=== PATIENT | female | born 1995 | race Caucasian/White ===

== ENCOUNTER 2019-04-29 14:49 | Emergency (ER) | payer OTHER, MEDICAID, SELFPAY ==
[2019-04-29 15:10] VITALS: BP 132/58; PULSE 106; RESP 18; TEMP 37.1; O2SAT 99; BMI 24.0
--- NOTE | 2019-04-29 15:13 | ED.BACK ---
HPI - Back Pain/Injury General Chief Complaint: Back Pain/Injury Stated Complaint: knot in her lower back that is bothering her Time Seen by Provider: 04/29/19 14:54 Source: patient Mode of arrival: Ambulatory Limitations: no limitations History of Present Illness HPI Narrative: 23-year-old female 20 weeks EGA here for evaluation of left-sided back spasm. She states that occurred earlier today. She has been doing a lot of bending over. States the fairly sudden onset. Lasted 45 minutes. Was in her lower back. It has somewhat resolved at the time my evaluation. She also describes tingling in her hands and also tingling on the tip of her nose. Review of Systems Constitutional Constitutional: Denies fever(s) and Denies headache(s) ENT Ears, Nose, Mouth, and Throat: Denies headache(s) Cardiovascular Cardiovascular: Denies dyspnea Respiratory Respiratory: Denies cough and Denies dyspnea Gastrointestinal Gastrointestinal: Denies abdominal pain, Denies nausea and Denies vomiting Genitourinary Genitourinary: Denies dysuria and Denies vaginal discharge Musculoskeletal Musculoskeletal: Reports back pain, Reports muscle cramps and Reports tingling Integumentary/Breasts Skin/Breast: Denies lesions and Denies rash Neurologic Neurologic: Denies behavioral changes, Denies headache(s) and Reports tingling Psychiatric Psychiatric: Denies behavioral changes Hematologic/Lymphatic Hematologic/Lymphatic: Denies easy bleeding and Denies easy bruising Patient History Medical History Healthy adult (Acute) Social History lives independently: Yes Smoking Status: Never smoker Exam Const General: cooperative and healthy appearing Resp Effort & Inspection: normal respiratory effort Auscultation: clear to auscultation bilaterally Cardio Rate: regular rate Rhythm: regular rhythm Back/Spine/Pelvis Thoracic/Lumbar Spine: paraspinal tenderness (Left lumbar), No thoracic spinal tenderness and No lumbar spinal tenderness Skin Lesions: no lesions Rashes: no rashes Neuro General: alert and awake Cognition: normal cognition Speech: speech normal Extrem General: normal to inspection and capillary refill normal Psych Appearance: grossly normal and well kempt MDM - Back Pain/Injury MDM Narrative Medical decision making narrative: Low suspicion for related complications. Does have a fullness to the left side of her back paraspinal which I do suspect is the cause of her symptoms. I feel we could hold on radiologic studies for now. Discussed return precautions and follow-up instructions. She expressed understanding and agreement. Discharge Plan Departure Patient Disposition: Home Clinical Impression: Spasm of muscle of lower back Instructions: DI for Low Back Pain Activity Restrictions/Additional Instructions: Unfortunately we are limited secondary to your status on the medications we can administer you. You can take Tylenol. I do recommend heat/ice and massage. I also recommend light stretching. Return to the emergency department for any new symptoms to include rash, blood in your urine, other problems urinating, loss of fluid or any other new or concerning symptoms ED Sign-out Cosign ED Attending Cosignature Attestation: I was immediately available in the department for consultation. This documentation has been reviewed and I agree with assessment and plan. Supervised by Jose Guadalupe Maradiaga DO
--- NOTE | 2019-04-29 15:25 | PC.NURSE ---
Pt reports left sided back pain like a muscle cramp s/p post lying on left side.
== END 2019-04-29 15:34 | disposition home or self-care (01) ==
PROVIDERS: Emergency Provider Emergency Medicine
DX: M62.830 Muscle spasm of back (principal)
CPT/HCPCS: 99281

== ENCOUNTER → 2023-05-08 08:00 | Outpatient (CLI) | payer OTHER, MEDICAID, SELFPAY ==
--- NOTE | 2023-05-08 08:02 | DI.ECHO.S_ITS ---
[facility] +---------+ : : [address] : : : : [id number] : : : : Phone: [phone]+ Echocardiogram Report + + :Name: KHARI SIMMONS Study Date: 05/08/2023 Height: 62 in : :[facility] ReadingLocation: Weight: 120 lb : : Gender: Female BSA: 1.5 m2 : :: 1995 Age: 27 yrs BP: 103/72 mmHg: :Reason For Study: SYNCOPE AND COLLAPSE : :Ordering Physician: KEVIN, : :ANNIKA Performed By: Caitlyn Barclay : :Referring: ANNIKA BROWN : + + Interpretation Summary 1) Normal left ventricular thickness and size with low normal systolic function (EF 50-55%). 2) Normal right ventricular size and function. 3) No significant valvular abnormalities. 4) No prior Echo available for comparison. Procedure: A two-dimensional transthoracic echocardiogram with color flow and Doppler was performed. The study quality was technically adequate. There is no prior echocardiogram noted for this patient. The patient was in sinus rhythm with heart rates between 61-90 bpm during the exam. Left Ventricle: The left ventricle is normal in size and wall thickness. The ejection fraction is estimated to be 50-55%. There are no focal wall motion abnormalities. Right Ventricle: The right ventricle is normal in size and function. Atria: The left atrial size is normal. Right atrial size is normal. There is no Doppler evidence for an interatrial shunt. Mitral Valve: The mitral valve is normal in structure and function. There is trace mitral regurgitation. Aortic Valve: The aortic valve is trileaflet. The aortic valve opens well. There is no aortic valve stenosis. No aortic regurgitation is present. Tricuspid Valve: The tricuspid valve is normal in structure and function. There is mild tricuspid regurgitation. The right ventricular systolic pressure is estimated to be at least 16 mmHg based on an estimated right atrial pressure of 3 mm Hg. Pulmonic Valve: The pulmonic valve leaflets are thin and pliable; valve motion is normal. There is trace pulmonic regurgitation. Great Vessels: The aortic root is normal size. The dimensions of the ascending aorta are normal. The IVC is of normal diameter and collapses greater than 50% with a sniff. This suggests a low right atrial pressure of 3 mm Hg. Pericardium/ Pleura There is no pericardial effusion. There is no pleural effusion. MMode/2D Measurements & Calculations LVIDd: 4.8 cm LVOT diam: 2.0 cm LVIDs: 3.0 cm Ao root diam: 2.8 cm FS: 38.3 % asc Aorta Diam: 2.7 cm EPSS: 0.58 cm Ao Arch Diam (Prox Trans): 2.3 cm IVSd: 0.51 cm LVPWd: 0.71 cm LV cheema. diameter/BSA (cm/m^2): 3.1 LV sys. diameter/BSA (cm/m^2): 1.9 LA A2 area: 11.2 cm2 RA long axis: 3.9 cm LA A4 area: 10.5 cm2 RA area: 9.9 cm2 LA length (vol): 3.6 cm RA vol: 21.7 ml LA vol: 28.0 ml RA : 14.1 ml/m2 LA vol index: 18.2 ml/m2 IVC diam: 1.4 cm RVD1 (basal): 2.9 cm RVD2 (mid): 3.0 cm TAPSE: 1.8 cm Doppler Measurements & Calculations Ao V2 max: 95.1 cm/sec LVOT Max Luis: 87.2 cm/sec Ao V2 mean: 66.9 cm/sec LV V1 max P.0 mmHg Ao max P.6 mmHg LV V1 VTI: 16.6 cm Ao mean P.0 mmHg SANDRA(I,D): 2.8 cm2 Ao V2 VTI: 18.1 cm SANDRA(V,D): 2.8 cm2 sev ratio: 0.92 SANDRA indexed to BSA (cm^2/m^2): 1.8 MV E max luis: 65.2 cm/sec TR max luis: 182.5 cm/sec MV A max luis: 31.9 cm/sec TR max P.3 mmHg MV E/A: 2.0 PA V2 max: 91.7 cm/sec Med Peak E' Luis: 13.4 cm/sec PA V2 mean: 68.3 cm/sec E/E' med: 4.9 PA mean P.0 mmHg Lat Peak E' Luis: 19.0 cm/sec PA pr(Accel): 36.2 mmHg E/E' lat: 3.4 E/e' average: 4.2 MV dec time: 0.22 sec SV(LVOT): 50.5 ml Reading Physician:04:17 PM
== END ==
PROVIDERS: PCP Physician Assistant Medical; Referring Provider Physician Assistant Medical; Visit Provider Physician Assistant Medical
DX: I07.1 Rheumatic tricuspid insufficiency (principal); R55 Syncope and collapse
CPT/HCPCS: 93306

== ENCOUNTER → 2023-12-08 16:31 | Outpatient (CLI) | payer OTHER, MEDICAID, SELFPAY ==
[2023-12-09 14:24] LABS: Strep Grp B PCR NEG for Grp B Strep
== END ==
PROVIDERS: PCP Physician Assistant Medical; Visit Provider Student in an Organized Health Care Education/Training Program
DX: Z36.85 Encounter for antenatal screening for Streptococcus B (principal)
CPT/HCPCS: 87653

== ENCOUNTER → 2023-12-08 16:57 | Outpatient (CLI) | payer OTHER, MEDICAID, SELFPAY ==
[2023-12-08 17:51] LABS: Add Manual Diff / Slide Review NO; Basophils Absolute Auto 100 /uL (0-100); Basophils Percent Auto 0.6 % (0-2); Eosinophils Absolute Auto 100 /uL (0-450); Eosinophils Percent Auto 0.6 % (2-4); Hemoglobin 7.8 g/dL (12.0-16.0); Lymphocytes Absolute Auto 1600 /uL (1100-4500); Lymphocytes Percent Auto 14.7 % (25-40); Mean Corpuscular HGB Conc 31.5 % (30-36); Mean Corpuscular Hemoglobin 20.6 PG (26-34); Mean Corpuscular Volume 65.5 fL (80-100); Monocytes Absolute Auto 700 /uL (0-900); Monocytes Percent Auto 6.1 % (3-14); Neutrophils Absolute Auto 8600 /uL (1500-7000); Platelet Count 382 X10^3/uL (150-400); Red Blood Cell Count 3.81 X10^6/uL (4.0-5.2); Red Cell Distribution Width 18.1 % (11.6-14.8)
[2023-12-08 18:26] LABS: Anisocytosis 2+; Microcytosis 2+
[2023-12-08 18:27] LABS: Hypochromasia 1+
== END ==
PROVIDERS: PCP Physician Assistant Medical; Referring Provider Student in an Organized Health Care Education/Training Program; Visit Provider Student in an Organized Health Care Education/Training Program
DX: O99.019 Anemia complicating pregnancy, unspecified trimester (principal); Z36.85 Encounter for antenatal screening for Streptococcus B
CPT/HCPCS: 36415; 85025; 87653

== ENCOUNTER 2023-12-10 11:12 | Observation (INO) | payer OTHER, MEDICAID, SELFPAY ==
--- NOTE | 2023-12-10 21:10 | P.TNLD_ITS ---
Visit Information Visit Information Date of evaluation: 12/10/23 Primary OB Provider: Brenda Michael On-call OB Provider: Xochilt Amor Reason for Evaluation: Yes other Comments/Additional reasons for admission: monitoring s/p adverse reaction to schedule outpatient iron infusion 28yo at 36w6d presents to L&D triage for further monitoring following adverse reaction to outpatient iron infusion. On-call provider called by infusion center notifying that patient reported sudden onset SOB, chest pressure and R sided pain. Infusion was immediately stopped (per RN received <30cc in total) and first dose of IV bendaryl 25mg administered prior to MD notification. In infusion center patient was noted to be normotensive without tachycardia, SpO2 wnl, +FM without c/o contractions. Patient was subsequently transported to L&D for further monitoring and evaluation. On entering room patient is resting comfortably in NAD. Denies SOB, chest pain, contractions; endorses good FM, states she feels fine other than being tired from recent IV benadryl. No concerns since arrival per RN, reactive NST Vital Signs Vital Signs: maternal VSS reviewed in OBIX and wnl, no tachycardia, SpO2 wnl, normotensive COUNT INCLUDES THE [facility] Medical History (Updated 11/17/23 @ 15:42 by Brenda Michael DO) Healthy adult Surgical History (Updated 11/10/23 @ 09:44 by Nette Silveira RN) No pertinent past surgical history Family History (Updated 11/10/23 @ 09:47 by Nette Silveira, KATTY) Grandfather Heart attack Occluded coronary artery stent Father Arrhythmia Brother Asthma Mother Depression Anxiety Social History marital status: unmarried,single number of children: 1 household members: children lives independently: Yes caregiver/support person: Yes housing: apartment pets and animals: No education level: high school 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) current occupational exposures/hazards: Yes special eugenio needs: No travel history: over 6 months ago seatbelt use: always helmet use: Yes water heater temp set < 120 deg: Yes working smoke detector in home: Yes fire extinguisher in home: No carbon monox detector in home: Yes firearms in home: No do you feel safe at home: Yes Smoking Status: Never smoker second hand exposure: Yes (parents smoke) alcohol intake: former (rarely when not ) substance use type: does not use during the past year weight has: remained stable (prior to ) well-balanced diet: rarely or never daily servings fruits/ve-1 caffeine: No Type(s) of exercise: walking Review of Systems Review of Systems ROS: Yes All systems reviewed with the patient and are negative except as otherwise documented Exam Vital Signs (past 8 hours): maternal vital signs reviewed in OBIX and wnl Const General: cooperative and comfortable Nutritional Appearance: average body habitus Orientation: alert, awake and oriented x3 Limitations: mental status not altered Resp Effort & Inspection: normal respiratory effort and able to speak in complete sentences Auscultation: clear to auscultation bilaterally Cardio Pulses: normal peripheral pulses GI Other: gravid Other: deferred Skin General: no rashes or lesions noted Rashes: no rashes Neuro General: patient alert, patient awake and patient oriented x3 Extrem General: normal to inspection Psych Mental Status: mental status grossly normal Judgment: judgment good Evaluation Evaluation Baseline heart rate: 140 Variability: Moderate (11-25) monitor accelerations: Present Monitor Decelerations: Absent Category of Tracing: Reactive Status: Category l Diagnosis, Plan/Disposition Plan/Disposition Plan: 28yo at 36w6d presents for prolonged monitoring and observation following adverse reaction to scheduled outpatient iron infusion Adverse reaction to iron transfusion Immediate resolution of symptoms with cessation of IV transfusion and administration of low-dose IV benadryl Plan for additional 2h of monitoring to ensure no delayed s/sx, discharge to home thereafter with routine outpatient PNC as scheduled OB Disposition: home
== END 2023-12-10 14:35 | disposition home or self-care (01) ==
PROVIDERS: Admitting Provider Obstetrics & Gynecology; PCP Physician Assistant Medical; Referring Provider Obstetrics & Gynecology; Visit Provider Obstetrics & Gynecology
DX: O26.893 Other specified pregnancy related conditions, third trimester (principal); T45.4X5A Adverse effect of iron and its compounds, initial encounter; R06.02 Shortness of breath; R07.9 Chest pain, unspecified; Z3A.36 36 weeks gestation of pregnancy; O99.019 Anemia complicating pregnancy, unspecified trimester
CPT/HCPCS: 59025; 59050; 96365; 96374; G0378; G0379; J1200; Q0138

== ENCOUNTER → 2023-12-23 10:30 | Oncology outpatient (ONC) | payer OTHER, MEDICAID, SELFPAY ==
[2023-12-10 10:24] VITALS: BP 125/62; PULSE 73; RESP 16; TEMP 37.1; O2SAT 98
[2023-12-10] MEDS: ferumoxytoL 1,020 MG in SODIUM CHLORIDE 0.9% 250 ML 250 MG IV (10:40)
[2023-12-10 10:53] VITALS: BP 130/66; PULSE 113; RESP 18; TEMP 37.1; O2SAT 99
[2023-12-10] MEDS: diphenhydrAMINE 50 MG/ML VIAL 25 MG IV (10:55)
[2023-12-10 10:58] VITALS: BP 116/68; PULSE 92; RESP 18; O2SAT 99
[2023-12-10 11:04] VITALS: BP 113/65; PULSE 68; RESP 18; TEMP 37.1; O2SAT 94
--- NOTE | 2023-12-10 11:31 | PC.NURSE ---
1040 first dose Feraheme 1.02 gram (284 ml) started, no premedication. No hx of allergic reaction, NKDA, no hx asthma or inflammatory arthritis. 1050 Transfusion stopped and disconnected from patient. Pt reports SOB, right sided chest/side/back pain. Vitals obtained see flowsheet for vitals. Wasted 3cc of transfusion & 3 cc blood return from PIV pigtail; then flushed PIV with 10 cc NS flush. Patient only recieved 23 cc of Infusion. [address] Amor (Provider line [phone]) covering MD for [facility] for patients [facility] Dr Michael; notified MD of transfusion reaction, patient complaint/assessment/vitals - verbal order given to give 25 mg Benadryl IV now and patient will go to [facility] for monitoring/NST 1055 Benadryl 25 mg IV Push given L AC 22 ga PIV by Km Rene RN 1104 Patient still has pain to back and dizziness but denies SOB. Patient in wheelchair for transport to [facility]. Vitals in flowsheet 1110 Transferred care to center KATTY Herrera RN
[2023-12-18] VITALS (7 sets, daily range): BP systolic 107–122; BP diastolic 49–74; PULSE 78–95; RESP 16–18; TEMP 36.8–37.1; O2SAT 97–99
[2023-12-18] MEDS: FAMOTIDINE 20 MG/2 ML VIAL IV (10:38)
[2023-12-18] MEDS: IRON SUCROSE 300 MG in SODIUM CHLORIDE 0.9% 250 ML 130 MG IV (10:55)
--- NOTE | 2023-12-18 13:44 | PC.NURSE ---
Patient here for 1st dose of Venofer. Patient had a infusion reaction 12/10/23 within first 10-15 mins of Feraheme and Provider notified and patient monitored in Center NST, Patients symptoms of infusion reaction resolved within a few hours. Provider saw patient and completed new infusion orders for Venofer 300 mg IV x 2 doses 3-5 days apart with Pre-Med orders for Famotidine 20 mg IV. 1038 Famotidine/Pepcid (Pre-Med) given IV Push 1055 Venofer Infusion Started @ rate of 130 ml/hr see VS in flowsheet 1315 Venofer Infusion Completed, including NS flush of medication to clear IV tubing administration set; Patient reports nasal congestion, runny nose with clear mucus; Patient denies SOB, chest pain, rash or other signs of adverse insfusion reaction/hypersensitivity reaction. 1345 PIV removed, 30 mins post infusion monitoring completed, see flowsheet for VS; Patient tolerated infusion well with only nasal congestion, runny nose. 1355 Patient discharged to home
[2023-12-23 10:16] VITALS: BP 111/71; PULSE 82; RESP 18; TEMP 36.4; O2SAT 97
[2023-12-23] MEDS: FAMOTIDINE 20 MG/2 ML VIAL IV (10:45)
[2023-12-23] MEDS: IRON SUCROSE 300 MG in SODIUM CHLORIDE 0.9% 250 ML 176 MG IV (10:55)
[2023-12-23 12:37] VITALS: BP 111/61; PULSE 93; RESP 16; TEMP 37; O2SAT 98
[2023-12-23 13:03] VITALS: BP 110/63; PULSE 90; RESP 16; TEMP 36.8; O2SAT 98
--- NOTE | 2023-12-23 13:04 | PC.NURSE ---
Patient here for second dose of Venofer with Famotidine IV Push (Pre-Med) -- Venofer 300mg/265 ml infused @ 176 ml/hr: Patient tolerated infusion well. VSS. No signs/symptoms of transfusion reaction/allergic reaction. See flowsheet for details.
== END ==
PROVIDERS: PCP Physician Assistant Medical; Referring Provider Student in an Organized Health Care Education/Training Program; Visit Provider Student in an Organized Health Care Education/Training Program
DX: O99.019 Anemia complicating pregnancy, unspecified trimester (principal)
CPT/HCPCS: 96365; 96366; 96374; J1200; J1756; Q0138

== ENCOUNTER 2024-01-07 13:10 | Outpatient (CLI) | payer OTHER, MEDICAID, SELFPAY ==
--- NOTE | 2024-01-07 13:54 | PM.OBTRLD ---
[facility] Medical History (Updated 01/13/24 @ 17:23 by Brenda Michael DO) Healthy adult Surgical History (Updated 11/10/23 @ 09:44 by Nette Silveira, RN) No pertinent past surgical history Family History (Updated 11/10/23 @ 09:47 by Nette Silveira, KATTY) Grandfather Heart attack Occluded coronary artery stent Father Arrhythmia Brother Asthma Mother Depression Anxiety Social History marital status: unmarried,single number of children: 1 household members: children lives independently: Yes caregiver/support person: Yes housing: apartment pets and animals: No education level: high school 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) current occupational exposures/hazards: Yes special eugenio needs: No travel history: over 6 months ago seatbelt use: always helmet use: Yes water heater temp set < 120 deg: Yes working smoke detector in home: Yes fire extinguisher in home: No carbon monox detector in home: Yes firearms in home: No do you feel safe at home: Yes Smoking Status: Never smoker second hand exposure: Yes (parents smoke) alcohol intake: former (rarely when not ) substance use type: does not use during the past year weight has: remained stable (prior to ) well-balanced diet: rarely or never daily servings fruits/ve-1 caffeine: No Type(s) of exercise: walking Evaluation Evaluation Baseline heart rate: 130 Variability: Moderate (11-25) monitor accelerations: Present Monitor Decelerations: Absent Contraction Frequency (minutes): 0 Diagnosis, Plan/Disposition Plan/Disposition Plan: 28 yo at 40w6d, NST for post-dates FHT reassuring, reactive Discharge home mIOL scheduled for later this week OB Disposition: home
== END 2024-01-07 13:57 | disposition home or self-care (01) ==
LOC: LABOR 13:38 → OB 01-11 09:25
PROVIDERS: PCP Physician Assistant Medical; Referring Provider Family Medicine; Visit Provider Family Medicine
DX: O48.0 Post-term pregnancy (principal); Z3A.40 40 weeks gestation of pregnancy
CPT/HCPCS: 59025; G0378; G0379

== ENCOUNTER 2024-01-11 19:13 | Inpatient (IN) | payer OTHER, MEDICAID, SELFPAY ==
[2024-01-11 19:36] VITALS: BP 118/77
[2024-01-11] MEDS: DINOPROSTONE VAG (CERVIDIL) 10 MG VAG (20:32)
[2024-01-11 20:38] LABS: Basophils Absolute Auto 0 /uL (0-100); Basophils Percent Auto 0.5 % (0-2); Eosinophils Absolute Auto 100 /uL (0-450); Eosinophils Percent Auto 0.7 % (2-4); Hematocrit 31.1 % (36-46); Hemoglobin 9.8 g/dL (12.0-16.0); Lymphocytes Absolute Auto 1300 /uL (1100-4500); Lymphocytes Percent Auto 17.9 % (25-40); Mean Corpuscular HGB Conc 31.5 % (30-36); Mean Corpuscular Hemoglobin 22.3 PG (26-34); Mean Corpuscular Volume 70.9 fL (80-100); Monocytes Absolute Auto 600 /uL (0-900); Monocytes Percent Auto 7.6 % (3-14); Neutrophils Absolute Auto 5400 /uL (1500-7000); Neutrophils Percent Auto 73.3 % (50-75); Platelet Count 344 X10^3/uL (150-400); Red Blood Cell Count 4.39 X10^6/uL (4.0-5.2); White Blood Cell Count 7.3 X10^3/uL (4.5-11.0)
[2024-01-11 20:45] LABS: Add Manual Diff / Slide Review SLIDE REVIEW
[2024-01-11 20:46] LABS: Anisocytosis 3+
[2024-01-11 20:47] LABS: Microcytosis 1+
--- NOTE | 2024-01-12 07:53 | PM.OBHP.1 ---
OB HPI Date/Time Date of admission: 01/11/24 Date Patient Seen: 01/12/24 Time Patient Seen: 07:53 History of Present Condition Chief complaint: induction : 3 Para: 1 Estimated Date of Delivery: 01/01/24 Estimated Gestational Age (weeks): 41+4 Narrative: Kareen Ernst is a 28 year old female Comments: admitted for induction of labor due to late term . She reports irregular contractions overnight with cervidil, otherwise denies leaking fluid, vaginal bleeding, or decreased movement. 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 NGUYEN Jacek (no longer involved, but may be present for delivery) Assigned to Fernanda Preadmission Labs Blood type: O (+) positive -: Antibody screen: negative, Cystic fibrosis screen: unknown, GBS status: negative, HBsAG: negative, HIV: negative, HSV 1: unknown, HSV 2: unknown and RPR/VDLR: negative -: Chlamydia screen: not detected and Gonorrhea screen: not detected -: Rubella: immune and Varicella: not immune HCT: 31.1 HCAB: negative PAP: Normal 1 hr GTT: 123 Evaluation Evaluation Baseline heart rate: 130 Variability: Moderate (11-25) monitor accelerations: Present Monitor Decelerations: Absent Contraction Frequency (minutes): 8 Status: Category l PFSH Medical History (Updated 11/17/23 @ 15:42 by Brenda Michael DO) Healthy adult Surgical History (Updated 11/10/23 @ 09:44 by Nette Silveira RN) No pertinent past surgical history Family History (Updated 11/10/23 @ 09:47 by Nette Silveira RN) Grandfather Heart attack Occluded coronary artery stent Father Arrhythmia Brother Asthma Mother Depression Anxiety Social History marital status: unmarried,single number of children: 1 household members: children lives independently: Yes caregiver/support person: Yes housing: apartment pets and animals: No education level: high school 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) current occupational exposures/hazards: Yes special eugenio needs: No travel history: over 6 months ago seatbelt use: always helmet use: Yes water heater temp set < 120 deg: Yes working smoke detector in home: Yes fire extinguisher in home: No carbon monox detector in home: Yes firearms in home: No do you feel safe at home: Yes Smoking Status: Never smoker second hand exposure: Yes (parents smoke) alcohol intake: former (rarely when not ) substance use type: does not use during the past year weight has: remained stable (prior to ) well-balanced diet: rarely or never daily servings fruits/ve-1 caffeine: No Type(s) of exercise: walking Meds Home Medications and Allergies Home Medications Medication Instructions Recorded Confirmed Type [id number] 400 mcg-om3 35 mg-dha 25 tab PO 11/10/23 12/29/23 History mg-epa 5 mg-fish oil chewable tablet ferrous sulfate 325 mg (65 mg 325 mg PO DAILY 11/10/23 01/11/24 History iron) tablet (FeroSul) Allergies Allergy/AdvReac Type Severity Reaction Status Date / Time No Known Drug Allergies Allergy Unverified 01/02/24 15:49 Review of Systems Review of Systems ROS: Yes All systems reviewed with the patient and are negative except as otherwise documented OB Exam Vital signs Blood Pressure: 118/77 Pulse Rate: 111 Respiratory Rate: 18 Temperature: 98.6 F HENMT Head: normal to inspection Resp Effort & Inspection: normal respiratory effort and able to speak in complete sentences Cardio Rate: regular rate Rhythm: regular rhythm Extremities Lower extremity: Yes normal to inspection GI Other: gravid, nontender, nondistended Objective Labs 01/11/24 20:23 Labs: Laboratory Results - last 24 hr 01/11/24 20:23 WBC 7.3 RBC 4.39 Hgb 9.8 L Hct 31.1 L MCV 70.9 L MCH 22.3 L MCHC 31.5 RDW 28.0 H Plt Count 344 Neut % (Auto) 73.3 Lymph % (Auto) 17.9 L Cecil % (Auto) 7.6 Eos % (Auto) 0.7 L Baso % (Auto) 0.5 Neut # (Auto) 5400 Lymph # (Auto) 1300 Cecil # (Auto) 600 Eos # (Auto) 100 Baso # (Auto) 0 RBC Morphology See below Anisocytosis 3+ H Microcytosis 1+ H Blood Type O Positive Antibody Screen Negative Assessment and Plan Assessment and Plan Assessment and Plan narrative: 28yo at 41+4wks admitted for induction of labor due to late term . -CBC, T&S done on admission -continuous EFM -epidural PRN -GBS neg, ppx not indicated -PPH risk low -VTE risk low, SCDs with epidural -induction started overnight with cervidil, to be removed at 8:30am; will reassess cervical exam at that time and determine need for further ripening vs. pitocin L&D Counseling: Common procedures and interventions related to the management of were explained to the patient, including assistance at vaginal delivery with episiotomy, vacuum, or forceps, use of medications to stop premature labor or induce labor, and assessment including auscultation (listening to the heart), use of electronic monitoring (external and / or internal), and use of scalp electrode and/or intrauterine pressure catheter.? It was also explained that approximately 20-30% of mothers have a need for delivery during their labor course. It was explained to the patient that , labor and delivery are ordinarily normal physiological events and can be expected to provide a healthy outcome for mother and baby in the majority of cases. However, there are complications that may arise during , labor, and delivery, such as: hemorrhage requiring administration of blood and/or blood products, surgical intervention, possibly even hysterectomy for life-saving purposes; possibility of infection requiring antibiotics, prolonged hospital stay, and rarely surgical intervention; possibility of blood clots;? possibility of retained products of conception requiring surgical intervention;? possibility of serious tears or injury to the vagina, cervix, perineum, or rectum;? possibility of injury to abdominal structures if delivery is required;? and rarely maternal or may occur. Time-Based Coding :: [30min] spent with patient and on the chart (including review of chart, obtaining history, exam, reviewing outside data, placing orders, documenting exam and treatment plan, and counseling patient) on [01/12/24].
[2024-01-12 08:00] VITALS: BP 118/77; PULSE 111; RESP 18; TEMP 37
[2024-01-12] MEDS: LACTATED RINGERS 1,000 ML 100 ML IV ×2 (10:22→18:27)
[2024-01-12] MEDS: OXYTOCIN PREMIX 30 UNIT/500 ML PLAST..BAG IV (10:23)
--- NOTE | 2024-01-12 10:32 | PM.OBPNLAB ---
Pain Control Pain control: tolerating well Pelvic Exam Dilation (cm): 1 Effacement (%): 40 station: -3 Amniotic membrane status: Intact Contractions Contractions on admission: irregular Monitor mode: External Contraction frequency (min): 4 Contraction pattern: Regular Contraction intensity: Mild Status status: Category l Heart Rate Baseline: 130 Monitor Accelerations: Present Monitor Decelerations: Absent Monitor Variability: Moderate Assessment and Plan Assessment: induction ongoing Comments: 28yo at 41+4wks admitted last night for IOL. She is s/p cervidil placement, which was removed at 8:30am. Her cervical exam was as above, and given how frequent her contractions are, unable to do cytotec at this time. Given how posterior her cervix is, would not attempt hudson bulb at this time. -plan to start pitocin, which was started at 10:20am -repeat SVE 4hrs from pitocin start, and assess if hudson bulb needed
--- NOTE | 2024-01-12 15:00 | PM.OBPNLAB ---
Date/Time Date Patient Seen: 01/12/24 Time Patient Seen: 15:01 Pain Control Pain control: tolerating well Pelvic Exam Dilation (cm): 2 Effacement (%): 60 station: -3 Amniotic membrane status: Intact Contractions Monitor mode: External Pitocin rate (mU/min): 4 Contraction frequency (min): 3 Contraction pattern: Regular Status status: Category l Heart Rate Baseline: 130 Monitor Accelerations: Present Monitor Decelerations: Absent Monitor Variability: Moderate Assessment and Plan Assessment: induction ongoing Comments: Pt increasingly uncomfortable with contractions. Hudson bulb placed with 60cc of NS. -epidural PRN -once hudson bulb expulsed, re-evaluate for possible AROM
--- NOTE | 2024-01-12 18:05 | PM.OBPNLAB ---
Date/Time Date Patient Seen: 01/12/24 Time Patient Seen: 18:05 Pain Control Pain control: tolerating well Comments: Taking over care of the patient from Dr. Michael. Cervical ripening last night. Pitocin since 10:30 am. Palomo placed at 5pm. Contractions getting more intense. Pelvic Exam Dilation (cm): 6 Effacement (%): 80 station: -1 Amniotic membrane status: Bulging Comments: Palomo bulb in vagina Contractions Contractions on admission: none Monitor mode: External Pitocin rate (mU/min): 4 Contraction frequency (min): 3 Contraction duration (min): 2 Contraction pattern: Regular Contraction intensity: Moderate Status status: Category l Heart Rate Baseline: 145 Monitor Accelerations: Present Monitor Decelerations: Absent Monitor Variability: Moderate Assessment and Plan Assessment: active labor Comments: AROM with slightly bloody fluid Epidural prn Expectant management to
--- NOTE | 2024-01-12 19:34 | PM.AN.REGBLK ---
Regional Block Pre-procedure Procedure: Continuous Lumbar Epidural for L&D Attending OB provider: Brenda Michael PMH/ROS narrative: , 41 4/7 weeks, IOL for post dates. PMH neg with exception of GERD with this . PSH/Anesthesia history narrative: Epidural with first , worked well. No other surgical hx. Exam narrative: Mall II, good dentition. ASA Class: II Labs: Hct 31.1 % (36-46) L 01/11/24 20:23 Plt Count 344 X10^3/uL (150-400) 01/11/24 20:23 Medications: Current Medications Generic Name Dose Route Start Last Admin Trade Name Freq PRN Reason Stop Dose Admin Calcium Carbonate 1,000 mg 01/11/24 19:28 Calcium Carbonate 500 Mg Tab PO Q2HR PRN Dyspepsia Carboprost Tromethamine 250 mcg 01/11/24 19:28 Carboprost 250 Mcg/Ml Ampul IM Q90M PRN Bleeding Oxytocin/Lactated Ringer's 30 unit in 500 mls @ 200 mls/hr 01/11/24 19:28 Oxytocin Premix IV CONT PRN Bleeding Protocol Tranexamic Acid 1,000 mg/ 100 mls @ 600 mls/hr 01/11/24 19:28 Sodium Chloride IV NOW PRN Bleeding Oxytocin/Lactated Ringer's 30 unit in 500 mls @ 2 mls/hr 01/12/24 10:30 01/12/24 10:23 Oxytocin Premix IV 2 milliunit/min TITRATE ANGÉLICA 2 mls/hr Administration Protocol 2 MILLIUNIT/MIN Lidocaine HCl 20 ml 01/11/24 19:28 Lidocaine 1% 20 Ml INJ INTRA-OP PRN Post Delivery Methylergonovine Maleate 0.2 mg 01/11/24 19:28 Methylergonovine 0.2 Mg Tablet PO Q6HR PRN Heavy Bleeding Methylergonovine Maleate 0.2 mg 01/11/24 19:28 Methylergonovine 0.2 Mg/Ml Vial IM NOW PRN Bleeding Misoprostol 400 mcg 01/11/24 19:28 Misoprostol 200 Mcg Tablet SL NOW PRN Bleeding Misoprostol 800 mcg 01/11/24 19:28 Misoprostol 200 Mcg Tablet DC NOW PRN Bleeding Naloxone HCl 0.2 mg 01/11/24 19:28 Naloxone 0.4 Mg/Ml Vial IV Q2MIN PRN Opiate Reversal Ondansetron HCl 4 mg 01/11/24 19:28 Ondansetron 4 Mg/2 Ml Inj IV Q4HR PRN Nausea And Vomiting Oxytocin 10 unit 01/11/24 19:28 Oxytocin 10 Unit/Ml Vial IM NOW PRN Bleeding Allergies: Allergies Allergy/AdvReac Type Severity Reaction Status Date / Time No Known Drug Allergies Allergy Unverified 01/02/24 15:49 Procedure Insertion date: 01/12/24 Insertion time: 19:04 Prep/Local: 1% lidocaine (Chlorhexidine skin prep, dry x 3 min) Interspace: L4-5 Patient position: sitting Needle: 17 gauge Tuohy Loss of resistance with: saline VALERIA at (cm): 6 Catheter placed at SKIN (cm): 13 Catheter in SPACE (cm): 7 Sensory level: T10 Insertion: No CSF, No Blood, No Paresthesia with insertion, No Paresthesia with injection and No Test dose reaction Initial Medications TEST DOSE time: 19:16 BOLUS DOSE time: :27 BOLUS DOSE (mL): 5 BOLUS DOSE med: other (pump solution) Infusion INFUSION: 0.125% bupivacaine and with fentanyl 2 mcg/mL Initial rate (mL/hr): 10 Subsequent interventions: 0430: 10cc 2% lidocaine bolused Post-procedure Anesthesia date START: 01/12/24 Anesthesia time START: 19:04 Anesthesia date END: 01/13/24 Anesthesia time END: 06:04 Post-procedure Anesthesia Assessment: Yes CV function: HR/BP stable, Yes Resp function: RR/sat/airway adequate, Yes Post-op hydration adequate, Yes Pain control adequate, Yes Nausea & vomiting absent, Yes Temperature > 36 C, Yes Mental status appropriate and Yes Anesthesia complications
[2024-01-12] MEDS: diphenhydrAMINE 50 MG/ML VIAL 25 MG IV (22:05)
[2024-01-13] MEDS: ACETAMINOPHEN 325 MG TABLET 975 MG PO (00:30)
--- NOTE | 2024-01-13 00:44 | PM.OBPNLAB ---
Date/Time Date Patient Seen: 01/13/24 Time Patient Seen: 00:44 Pain Control Pain control: epidural Comments: Called to see patient for little progress, low grade temp and Cat 2 tracing Pelvic Exam Dilation (cm): 8 Effacement (%): 90 station: 0 Amniotic membrane status: Ruptured Comments: Slight greenish tint to amniotic fluid on pt's pad Contractions Contractions on admission: none Monitor mode: External Pitocin rate (mU/min): 4 Contraction frequency (min): 3 Contraction duration (min): 1 Contraction pattern: Regular Contraction intensity: Moderate Status status: Category ll Heart Rate Baseline: 145 Monitor Accelerations: Present Monitor Decelerations: Late (occasional) and Variable Monitor Variability: Moderate Comments: Acceleration with scalp stim Assessment and Plan Assessment: active labor Comments: IUPC placed to assess adequacy of contractions Tylenol 1000mg PO x 1
[2024-01-13] MEDS: LACTATED RINGERS 1,000 ML 100 ML IV (01:08)
--- NOTE | 2024-01-13 06:34 | PM.OBPRVD ---
Events: Labor Induction Labor & Delivery Delivery date: 01/13/24 Delivery Time: 06:04 Intrapartal Events: Prolonged Active Phase, Intolerance and Deceleration Cervical ripening method: per misoprostal protocol Induction method: per pitocin protocol Delivery augmentation: rupture of membranes Delivery monitor: external FHT, external uterine and internal uterine Route of delivery: Episiotomy description: None L&D Laceration Description: Perineal - 2nd Degree and Vaginal - 2nd Degree Delivery repair: vicryl and chromic Quantitative Blood Loss: 293 Anesthesia Type: Epidural Complications: None Narrative: Patient complete and pushed for 17 minutes. At 6:04 a.m., a live male infant delivered spontaneously in the ZACK presentation, over an intact perineum. The remainder of the body delivered without difficulty. The infant was placed on mom's abdomen. Pitocin was given in the IV fluids. There was a cord around the right ankle which was reduced. The cord was double clamped and cut. A piece of cord for cord pH was obtained. Cord bloods were obtained. The placenta delivered intact with a three-vessel cord at 6:13 a.m.. A second-degree vaginal/perineal laceration was repaired in the usual fashion with 2-0 Vicryl and 2-0 chromic. . Epidural analgesia. Mom and stable to recovery. Apgars 8 at 1 minute and 9 at 5 minutes. Baby 1: Infant gender: Male Presentation: vertex Position: Left Occiput Anterior Placenta delivery description: Spontaneous Cord Vessel Description: 3 Vessels, Reduced, Clamped/Cut and Around Body x1 (right ankle) score (1 min): 8 score (5 min): 9 weight: 9 lb 13 oz Plan for aftercare: Routine care
[2024-01-13] MEDS: ACETAMINOPHEN 325 MG TABLET 650 MG PO ×3 (08:46→20:55)
[2024-01-13] MEDS: DERMOPLAST SPRAY 20% 60 ML 1 SPRAY TOP (08:46)
[2024-01-13] MEDS: IBUPROFEN 600 MG TABLET PO (08:47)
[2024-01-13] MEDS: DOCUSATE 100 MG CAPSULE PO (14:50)
[2024-01-13] MEDS: LANOLIN OINT 7 GM 1 APPLIC TOP (15:28)
--- NOTE | 2024-01-13 17:18 | PM.OBPN.1 ---
Subjective - OB Subjective Patient comments: pain well controlled and tolerating diet Date Patient Seen: 01/13/24 Time Patient Seen: 16:55 Interval history: 28yo [id number] s/p this morning. Doing well, pain well controlled. Ambulating, tolerating regular diet. Baby being monitored with blood glucose levels due to LGA. Exam Vital Signs (past 8 hours): reviewed in OBIX, within normal parameters Const General: comfortable and No acute distress Resp Effort & Inspection: normal respiratory effort and able to speak in complete sentences Skin General: no rashes or lesions noted Neuro Cognition: normal cognition Speech: speech normal Extrem General: normal to inspection and no calf tenderness Psych Mood: congruent mood Affect: normal affect Objective Labs 01/11/24 20:23 Assessment & Plan Assessment and Plan (1) Vaginal delivery: Status: Acute (2) Anemia affecting : Status: Acute Plan day: 0 plan OB: routine care Comments: Doing well in the period. Anticipate d/c home in the morning. Plan for 2 week telehealth follow-up and 6 week in person follow-up. Time-Based Coding :: [15min] spent with patient and on the chart (including review of chart, obtaining history, exam, reviewing outside data, placing orders, documenting exam and treatment plan, and counseling patient) on [01/13/24].
[2024-01-14] MEDS: ACETAMINOPHEN 325 MG TABLET 650 MG PO ×2 (04:10→11:59)
[2024-01-14 06:40] LABS: Hematocrit 28.8 % (36-46); Hemoglobin 9.1 g/dL (12.0-16.0)
--- NOTE | 2024-01-14 08:00 | PM.DS.1 ---
History of Present Illness History of Present Illness Date Patient Seen: 01/14/24 Time Patient Seen: 07:15 Chief complaint: induction Narrative: 28yo PPD1 s/p of LGA LBMI. Pt resting in bed, breast and bottle feeding. Notes persistent perineal soreness, has not been taking oral analgesia and encouraged to do so. Ambulating and voiding without difficulty, tolerating full diet, lochia minimal. Requests stool softener. Discharge Providers Provider Date of admission: 01/11/24 19:13 Discharge Date: 01/14/24 Primary care physician: Annika Trotter PA-C Consults: 01/11/24 19:28 Consult to Anesthesiology Urgent Comment: Consulting Provider: Anesthesiologist Reason for consultation: Epidural 01/14/24 06:32 Consult to [employer]erm[employer] Operator Routine Comment: Discharge provider: Xochilt Amor MD Summary Hospital Course Discharge Diagnosis: s/p of LGA LBMI Hospital Course: 28yo at 41w4d admitted for IOL in setting of late term . course notable for significant maternal anemia necessitating iron transfusion x2. Patient underwent induction with cervical ripening with dinoprostol followed by pitocin augmentation. Slow progression to active labor, dysfunctional/prolonged duration secondary to position (asynclitic) with progression to full dilation following placement of IUPC and upwards titration of pitocin. Intermittent periods of cat 2 tracing, noted particulate meconium at time of SROM. Patient had an uncomplicated second stage with delivery of LGA LBMI (4450g, 8/9), 2nd degree perineal laceration repaired in standard fashion. Pt had an uncomplicated course, rapidly meeting discharge milestones. Breast feeding with formula supplementation. Declines contraception at time of discharge with appropriate counseling. Discharge to home on PPD1 with routine outpatient f/u in office. Status at Discharge Cognitive/behavioral status at discharge: oriented Functional status at discharge: independent ambulation Overall status at discharge: patient is back to baseline Time Spent with Patient Time spent: Less than 30 minutes Exam Vital Signs (past 8 hours): maternal VS reviewed in OBIX and wnl Const General: cooperative and comfortable Nutritional Appearance: average body habitus Orientation: alert, awake and oriented x3 Limitations: mental status not altered Resp Effort & Inspection: normal respiratory effort and able to speak in complete sentences Cardio Pulses: normal peripheral pulses GI Other: fundus firm << umb, non-tender Other: deferred Skin General: no rashes or lesions noted Neuro General: patient alert, patient awake and patient oriented x3 Psych Mental Status: mental status grossly normal Judgment: judgment good Objective Labs 01/14/24 06:19 Labs: Laboratory Results - last 24 hr 01/14/24 06:19 Hgb 9.1 L Hct 28.8 L PFSH Medical History (Updated 01/13/24 @ 17:23 by Brenda Michael DO) Healthy adult Surgical History (Updated 11/10/23 @ 09:44 by Nette Silveira RN) No pertinent past surgical history Family History (Updated 11/10/23 @ 09:47 by Nette Silveira RN) Grandfather Heart attack Occluded coronary artery stent Father Arrhythmia Brother Asthma Mother Depression Anxiety Social History marital status: unmarried,single number of children: 1 household members: children lives independently: Yes caregiver/support person: Yes housing: apartment pets and animals: No education level: high school 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) current occupational exposures/hazards: Yes special eugenio needs: No travel history: over 6 months ago seatbelt use: always helmet use: Yes water heater temp set < 120 deg: Yes working smoke detector in home: Yes fire extinguisher in home: No carbon monox detector in home: Yes firearms in home: No do you feel safe at home: Yes Smoking Status: Never smoker second hand exposure: Yes (parents smoke) alcohol intake: former (rarely when not ) substance use type: does not use during the past year weight has: remained stable (prior to ) well-balanced diet: rarely or never daily servings fruits/ve-1 caffeine: No Type(s) of exercise: walking Discharge Assessment & Plan Assessment and Plan Assessment: 28yo PPD1 s/p of LGA LBMI routine care, fully advanced, support PRN continue PO iron supplementation at discharge declines bridge contraception, precautions reviewed, readdress at visit consider GTT given unanticipate LGA Discharge Plan Discharge Plan Patient Disposition: Home Discharge orders & Medications Prescriptions: New acetaminophen 325 mg Tablet 650 mg PO Q6HR PRN (Reason: Pain, Mild (1-3)) Qty: 30 0RF Dermoplast (with menthol) 20-0.5 % Aerosol 1 spray topical Q1HR PRN (Reason: perineal pain) Qty: 56 3RF ibuprofen 600 mg Tablet 600 mg PO Q6HR PRN (Reason: Pain, Mild (1-3)) Qty: 60 0RF Purelan Cream 1 applic topical PRN PRN (Reason: Tenderness) Qty: 7 2RF [employer] [place] 12.5-50 % Pads, Medicated 1 pad topical Q30M PRN (Reason: Itching) Qty: 40 3RF Continued [id number] oil 400 mcg-35 mg -25 mg-5 mg tablet,chewable See Rx Instructions .ROUTE .COMPLEX Rx Instructions: per provider order ferrous sulfate [FeroSul] 325 mg (65 mg iron) tablet 325 mg PO DAILY Follow up/Referrals: Francisco Guerrero MD [Physician] - 6 Weeks (February 25, 2024 at 11:00 AM with [address]) Annika Trotter PA-C [Primary Care Provider] - Visit Report/Discharge Packet Stand Alone Forms: Discharge: Care, Patient Portal/API, Stroke Signs & Symptoms Discharge Data Primary Care Provider: Annika Trotter
[2024-01-14] MEDS: DOCUSATE 100 MG CAPSULE PO (08:36)
--- NOTE | 2024-01-14 10:50 | CM.SWNOTE ---
Gravity Prospecting Observer Helper Note ROAD CONTRACTOR received consult. Reviewed EMR. Pt is a 28yr F, delivered baby boy yesterday. ([id number]) Plans to dc home later today. Per RN report, concerns about pt access to equipment/resources. questions about pt's first child/the custody story, reports of pt not having custody of first child. Per RN, baby boy hypoglycemia at but other than that healthy and doing well. Per chart review, pt had considered adoption for this baby boy but decided to keep him. Per chart/RN report, FOB not currently involved in baby's life. ROAD CONTRACTOR entered room and introduced self to pt and step-mom, Kelly. baby sleeping soundly held by his step-grandmother. Pt(mom) sleeping prior to meeting, groggy during intervention. Pt confirms plan to stay with step-mom and dad in [place] with . Reports she gave first baby up for adoption and her dad has custody. First child with pt's(mom's) dad now. Reports having necessary equipment, i.e. car seat, bassinet, etc. already has f/u appts scheduled. ROAD CONTRACTOR provided pt with multiple new parent resources for [place] area. pt/step-mom appreciative. pt denies other questions or concerns at this time. Step-mom had question on , ROAD CONTRACTOR reported she would update nursing team. ROAD CONTRACTOR updated white board with direct contact information in case of further questions or concerns. ROAD CONTRACTOR updated RN about above information/step-mom's questions. Deny further concerns at this time. no further ROAD CONTRACTOR needs identified at this time. Appreciative of opportunity to meet pt and adorable new baby. ROAD CONTRACTOR team will happily continue to follow as needed. DAYANA De La Cruz
[2024-01-14] MEDS: WITCH HAZEL/GLYCERIN PADS 1 EACH TOP (11:59)
== END 2024-01-14 13:45 | disposition home or self-care (01) | DRG 560 ==
PROVIDERS: Obstetrics & Gynecology; Admitting Provider Student in an Organized Health Care Education/Training Program; PCP Physician Assistant Medical; Referring Provider Student in an Organized Health Care Education/Training Program; Visit Provider Student in an Organized Health Care Education/Training Program
DX: O48.0 Post-term pregnancy (principal); Z3A.41 41 weeks gestation of pregnancy; Z37.0 Single live birth; O70.1 Second degree perineal laceration during delivery; O76 Abnormality in fetal heart rate and rhythm complicating labor and delivery; O63.1 Prolonged second stage (of labor)
CPT/HCPCS: 36415; 59050; 59200; 59409; 85014; 85018; 85025; 86850; 86900; 86901; G0379; J1200; J2590

== ENCOUNTER → 2024-04-09 11:56 | Outpatient (CLI) | payer OTHER, SELFPAY ==
[2024-04-09 12:29] LABS: Bilirubin Urine UA NEGATIVE (NEGATIVE); Color Urine UA YELLOW; Glucose Urine UA NEGATIVE (Negative); Ketones Urine UA NEGATIVE (NEGATIVE); Leukocyte Esterase Urine UA TRACE (NEGATIVE); Nitrite Urine UA POSITIVE (Negative); Occult Blood Urine UA 1+ (Negative); Protein Urine UA NEGATIVE (Negative)
[2024-04-09 12:38] LABS: Appearance Urine UA Slightly Cloudy
[2024-04-09 12:39] LABS: Bacteria Urine Moderate (10-30); Culture Indicated Urine Specimen Cultured; RBC Urine 1-5/HPF (0-5/HPF); Squamous Epithelial Cell Urine 1-5 /HPF (0-5/HPF); Urine Volume 10mL (spun); WBC Urine 5-10/HPF (0-5/HPF)
== END ==
LOC: LAB 11:57
PROVIDERS: PCP Physician Assistant Medical; Referring Provider Obstetrics & Gynecology; Visit Provider Obstetrics & Gynecology
DX: R30.9 Painful micturition, unspecified (principal); R35.0 Frequency of micturition
CPT/HCPCS: 81001; 87077; 87086; 87186